=== PATIENT | female | born 1970 ===

== ENCOUNTER 2024-08-16 06:00 | Outpatient (CLI) | payer OTHER ==
[~2024-08-16] VITALS: Ht 160 cm; Wt 83.9 kg
[~2024-08-16 06:00] MED LIST: ALDACTONE100 MG PO; FINASTERIDE1 MG PO; JARDIANCE25 MG PO; MOUNJARO5 MG/0.5 M
[2024-08-16 09:36] LABS: PH,URINE 5.5 (5.0-8.0); URINE APPEARANCE Clear; URINE BILIRRUBIN Negative (NEGATIVE); URINE BLOOD NHT; URINE COLOR Yellow; URINE KETONE Negative (NEGATIVE); URINE LEUKOCYTE Negative; URINE NITRATE Negative; URINE PROTEIN Negative (NEGATIVE); URINE UROBILINOGEN 0.2 E.U./dl
[2024-08-16 09:41] LABS: URINE BACTERIA 228.8 uL (0.0-1933); URINE EPITHELIAL CELLS 3.3 uL (0.0-38.8); URINE WBC 3.3 uL (0.0-23.2)
[2024-08-16 09:42] VITALS: BP 119/80
[2024-08-16 09:44] LABS: URINE GLUCOSE >=1000 MG/DL (NEGATIVE)
[2024-08-16 09:49] LABS: HEMATOCRIT 48.3 % (36.0-45.00); MEAN CELL VOLUME 95.6 fL (80.00-100.00); MEAN CORPUSCULAR HEMOGLOBIN 31.8 pg (27.00-32.0); MEAN CORPUSCULAR HGB CONC 33.2 g/dl (32.0-36.0); PLATELET COUNT 266 K/uL (150-450); RED BLOOD COUNT 5.05 M/uL (4.00-6.00); RED CELL DISTRIBUTION WIDTH 13.7 % (11.5-14.5)
[2024-08-16 10:22] LABS: INR 1.04; PROTHROMBIN TIME 11.3 SECONDS (9.0-11.5)
[2024-08-16 10:26] LABS: ALBUMIN 4.2 gm/dL (3.4-5.0); BILIRUBIN TOTAL 0.51 mg/dL (0.3-1.2); CALCIUM 10.1 mg/dL (8.5-10.1); CREATININE SERUM 1.01 mg/dL (0.55-1.02); GFR 57.12; POTASSIUM 4.54 mEq/L (3.5-5.1); TOTAL PROTEIN 8.2 gm/dL (6.4-8.2)
== END 2024-08-16 06:01 | disposition home or self-care (01) ==
LOC: RAD 06:00 → ADM 08:15 → CIR.AMB 08-23 07:00 → EDSTATUS 08-23 08:15 → CIR.AMB 08-23 08:15
PROVIDERS: ATTEND Orthopaedic Surgery
DX: M75.22 Bicipital tendinitis, left shoulder (principal); M75.122 Complete rotator cuff tear or rupture of left shoulder, not specified as traumatic; M24.112 Other articular cartilage disorders, left shoulder